=== PATIENT | female | born 1960 | race American Indian/Alaskan Native ===

== ENCOUNTER 2017-07-03 12:06 | Emergency (ER) | payer MEDICARE ==
[2017-07-03 12:21] VITALS: BP 124/80
[2017-07-03] MEDS ORDERED: TESSALON PERLES PO ONE (13:29)
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
== END 2017-07-03 13:47 | disposition home or self-care (01) ==
LOC: ED 12:06
DX: R05 Cough (principal)
CPT/HCPCS: 99282

== ENCOUNTER 2017-08-13 15:14 | Emergency (ER) | payer MEDICARE ==
[2017-08-13 15:26] VITALS: BP 124/85
== END 2017-08-13 16:33 ==
LOC: ED 15:14
DX: R06.02 Shortness of breath (principal); Z53.21 Procedure and treatment not carried out due to patient leaving prior to being seen by health care provider

== ENCOUNTER 2017-09-02 12:50 | Emergency (ER) | payer MEDICARE ==
[2017-09-02 13:21] VITALS: BP 126/60
== END 2017-09-02 16:41 | disposition left against medical advice (07) ==
LOC: ED 12:50
DX: R06.00 Dyspnea, unspecified (principal); Z53.21 Procedure and treatment not carried out due to patient leaving prior to being seen by health care provider